=== PATIENT | female | born 1970 | race Caucasian/White ===

== ENCOUNTER 2016-12-02 15:46 | Emergency (ER) | payer OTHER ==
[2016-12-02 15:58] VITALS: BP 137/86
--- NOTE | 2016-12-02 16:29 | UC ---
Abdominal Pain Female HPI - HPI Summary HPI Summary: Pt started with nasal congestion, ST, cough, chills about 2 weeks ago. Sx lasted around 7 days and seemed to clear up completely. Developed nausea and occasional episodes of diarrhea (1-2x/day) 4 days ago; daughter had vomiting and diarrhea that lasted about 24 hours just before pt had symptoms. Stomach still feels a little queasy and she still "feels sick." Feels tired, chilled, feet are sweaty, is quick to be exhausted with exertion. Denies fever, cough, trouble breathing, facial pain, or abdominal pain. Does report increased "gurgling" in stomach with eating. - History of Current Complaint Chief Complaint: UCGeneralIllness Stated Complaint: FLU LIKE SYMPTOMS Time Seen by Provider: 12/02/16 15:57 Hx Last Menstrual Period: 11/26/16 ?: No Onset/Duration: Gradual Onset, Lasting Days Timing: Constant Severity Initially: Mild Severity Currently: Mild Location: Diffuse Radiates: No Character: Other - gurgly, nausea Aggravating Factor(s): Food Alleviating Factor(s): Nothing Associated Signs and Symptoms: Positive: Cough - resolved, Nausea, Diarrhea. Negative: Fever, Back Pain, Constipation Allergies/Adverse Reactions: Allergies Allergy/AdvReac Type Severity Reaction Status Date / Time Latex Allergy Itching Verified 01/20/16 12:29 PMH/Surg Hx/FS Hx/Imm Hx Endocrine History Of: Reports: Thyroid Disease - hypo Denies: Diabetes Cardiovascular History Of: Denies: Hypertension, Pacemaker/ICD GI/ History Of: Denies: Renal Disease - Surgical History Surgical History: Yes Surgery Procedure, Year, and Place: surgery for excessive menstrual bleeding. BUNION REMOVED FROM LEFT GREAT TOE W/PIN - Family History Known Family History: Positive: Hypertension - Social History Occupation: Employed Full-time Alcohol Use: None Substance Use Type: None Smoking Status (MU): Former Smoker When Did the Patient Quit Smoking/Using Tobacco: 2005 Review of Systems Constitutional: Negative Skin: Negative Eyes: Negative ENT: Sore Throat - resolved, Nasal Discharge - resolved Respiratory: Cough - resolved Cardiovascular: Negative Gastrointestinal: Diarrhea Genitourinary: Negative Motor: Negative Neurovascular: Negative Musculoskeletal: Negative Neurological: Negative Psychological: Negative All Other Systems Reviewed And Are Negative: Yes Physical Exam Triage Information Reviewed: Yes Appearance: Well-Appearing, No Pain Distress, Well-Nourished Vital Signs: Initial Vital Signs Temp 97.5 F 12/02/16 15:53 Pulse 73 12/02/16 15:53 Resp 16 12/02/16 15:53 BP 137/86 12/02/16 15:53 Pulse Ox 100 12/02/16 15:53 Vital Signs Reviewed: Yes Eye Exam: Normal Eyes: Positive: Conjunctiva Clear ENT Exam: Normal ENT: Positive: Normal ENT inspection, Hearing grossly normal, Pharynx normal, TMs normal, Other: - no sinus tenderness, no PND. Negative: Nasal congestion, Nasal drainage, Tonsillar swelling, Tonsillar exudate Dental Exam: Normal Dental: Negative: Percussion Tenderness @, Gross Decay/Caries @, Dental Fracture @ Neck exam: Normal Neck: Positive: Supple, Nontender, No Lymphadenopathy Respiratory Exam: Normal Respiratory: Positive: Chest non-tender, Lungs clear, Normal breath sounds, No respiratory distress, No accessory muscle use Cardiovascular Exam: Normal Cardiovascular: Positive: RRR, No Murmur Abdominal Exam: Normal Abdomen Description: Positive: Nontender, No Organomegaly, Soft. Negative: Bruit, CVA Tenderness (R), CVA Tenderness (L), Distended, Guarding, McBurney's Point Tenderness, Peritoneal Signs Bowel Sounds: Positive: Present Musculoskeletal Exam: Normal Neurological Exam: Normal Psychological Exam: Normal Skin Exam: Normal Abd Pain Female Course/Dx - Differential Dx/Diagnosis Provider Diagnoses: Acute gastroenteritis, resolving Discharge - Discharge Plan Condition: Stable Disposition: HOME Patient Education Materials: Gastroenteritis (ED) Referrals: Selina Shepherd MD [Primary Care Provider] - Additional Instructions: Though your symptoms were fairly mild, I suspect you still feel sick because you are still fighting off the intestinal virus. I fully expect you should feel back to normal by this weekend. If you develop new symptoms such as fever, abdominal pain, cough, trouble breathing, or other sudden change, please don't hesitate to return here or see your primary care provider.
== END 2016-12-02 16:31 | disposition home or self-care (01) ==
LOC: UCEAST 15:46
DX: K52.9 Noninfective gastroenteritis and colitis, unspecified (principal); Z87.891 Personal history of nicotine dependence
CPT/HCPCS: 99211; G0463

== ENCOUNTER 2016-12-23 15:56 | Emergency (ER) | payer OTHER ==
[2016-12-23 16:32] VITALS: BP 139/83
--- NOTE | 2016-12-23 17:14 | UC ---
Throat Pain/Nasal Ludin HPI - HPI Summary HPI Summary: DIAGNOSED WITH POSITIVE STREP FOUR DAYS AGO. LAST TWO DAYS HAS HAD WORSENING FEVER, SORE THROAT, COUGH. NO RASHES. - History of Current Complaint Chief Complaint: UCRespiratory Stated Complaint: SORE THROAT Time Seen by Provider: 12/23/16 16:35 Hx Obtained From: Patient Hx Last Menstrual Period: 12/05/16 Onset/Duration: Gradual Onset, Lasting Days, Still Present Severity: Moderate Cough: None Associated Signs & Symptoms: Positive: Dysphagia, Hoarseness, Fever - Epiglottits Risk Factors Epiglottis Risk Factors: Negative - Allergies/Home Medications Allergies/Adverse Reactions: Allergies Allergy/AdvReac Type Severity Reaction Status Date / Time Latex Allergy Itching Verified 12/23/16 16:32 PMH/Surg Hx/FS Hx/Imm Hx Previously Healthy: Yes Endocrine History Of: Reports: Thyroid Disease - hypo Denies: Diabetes Cardiovascular History Of: Denies: Cardiac Disorders, Hypertension, Pacemaker/ICD Respiratory History Of: Denies: COPD, Asthma GI/ History Of: Denies: Ulcer, Renal Disease - Surgical History Surgical History: Yes Surgery Procedure, Year, and Place: surgery for excessive menstrual bleeding. BUNION REMOVED FROM LEFT GREAT TOE W/PIN - Family History Known Family History: Positive: Hypertension - Social History Occupation: Employed Full-time Lives: With Family Alcohol Use: None Substance Use Type: None Smoking Status (MU): Former Smoker When Did the Patient Quit Smoking/Using Tobacco: 2005 Review of Systems Constitutional: Fever, Chills Skin: Negative Eyes: Negative ENT: Sore Throat Respiratory: Negative Cardiovascular: Negative Gastrointestinal: Negative Genitourinary: Negative Motor: Negative Neurovascular: Negative Musculoskeletal: Negative Neurological: Negative Psychological: Negative All Other Systems Reviewed And Are Negative: Yes Physical Exam Triage Information Reviewed: Yes Appearance: Well-Appearing, No Pain Distress, Well-Nourished Vital Signs: Initial Vital Signs Temp 98.2 F 12/23/16 16:29 Pulse 63 12/23/16 16:29 Resp 16 12/23/16 16:29 BP 139/83 12/23/16 16:29 Pulse Ox 100 12/23/16 16:29 Vital Signs Reviewed: Yes Eye Exam: Normal Eyes: Positive: Conjunctiva Clear ENT: Positive: Hearing grossly normal, Pharyngeal erythema, TMs normal, TM dull , Tonsillar swelling, Tonsillar exudate Dental Exam: Normal Neck exam: Normal Neck: Positive: Supple, Nontender Respiratory Exam: Normal Respiratory: Positive: Chest non-tender, Lungs clear, Normal breath sounds, No respiratory distress Cardiovascular Exam: Normal Cardiovascular: Positive: RRR, No Murmur, Pulses Normal Abdominal Exam: Normal Musculoskeletal Exam: Normal Neurological Exam: Normal Psychological Exam: Normal Psychological: Positive: Normal Response To Family Skin Exam: Normal Throat Pain/Nasal Course/Dx - Differential Dx/Diagnosis Differential Diagnosis/HQI/PQRI: Laryngitis, Pharyngitis, Tonsillitis, URI Provider Diagnoses: STREP TONSILLITIS Discharge - Discharge Plan Condition: Stable Disposition: HOME Prescriptions: Amoxicillin/Clavulanate TAB* [Augmentin TAB 875*] 875 mg PO BID #20 tab Patient Education Materials: Strep Throat (ED) Forms: *Work Release Referrals: Selina Shepherd MD [Primary Care Provider] -
== END 2016-12-23 17:10 | disposition home or self-care (01) ==
LOC: UCEAST 15:56
DX: J03.00 Acute streptococcal tonsillitis, unspecified (principal); Z87.891 Personal history of nicotine dependence
CPT/HCPCS: 87651; 99212; G0463

== ENCOUNTER 2017-07-09 02:03 | Emergency (ER) | payer OTHER ==
[2017-07-09] MEDS ORDERED: NS 0.9% 1000 ML* 1,000 ML IV ONE (02:34)
[2017-07-09 03:51] LABS: Urine Bilirubin Negative (Negative); Urine Glucose Negative (Negative); Urine Nitrite Negative (Negative)
[2017-07-09 03:54] LABS: Hematocrit 41 % (35-47); Hemoglobin 13.8 g/dl (12.0-16.0); Mean Corpuscular HGB Conc 34 g/dl (31-36); Mean Corpuscular Hemoglobin 30 pg (27-31); Mean Corpuscular Volume 88 fL (80-97); Mean Platelet Volume 8 um3 (7.4-10.4); Red Blood Count 4.66 10^6/ul (4.0-5.4); Red Cell Distribution Width 13 % (10.5-15)
[2017-07-09 04:07] LABS: ALT 18 U/L (7-52); AST 15 U/L (13-39); Albumin 4.3 g/dL (3.2-5.2); Alkaline Phosphatase 62 U/L (34-104); Amylase 24 U/L (29-103); Anion Gap 5 mmol/L (2-11); BUN/Creatinine Ratio 21.3 (8-20); Blood Urea Nitrogen 17 mg/dL (6-24); C Reactive Protein < 1.00 mg/L (< 5.00); CO2 Carbon Dioxide 24 mmol/L (22-32); Chloride 105 mmol/L (101-111); EGFR African American 98.9 (>60); EGFR Non-African American 76.9 (>60); Globulin 2.7 g/dL (2-4); Glucose 98 mg/dL (70-100); Lipase 25 U/L (11.0-82.0); Potassium 3.9 mmol/L (3.5-5.0); Sodium 134 mmol/L (133-145)
[2017-07-09 07:05] VITALS: BP 136/86
--- NOTE | 2017-07-09 07:25 | ED ---
Ayse Jean Emily, scribed for Nicolas Carballo MD on 07/09/17 at 0508 . HPI Chest Pain - HPI Summary HPI Summary: This patient is a 46 year old F BIBA to [facility] with a chief complaint of right- sided chest pain that began about 2300. Pain is behind the right breast and on the right side. She reports a band of pain on the right back spread from the CP. The CC is described as an intense tight, burning pain (gripping). The pain is intermittent and has lessened. Her stools have been dark, and it has been hard for her to defecate in the last 2 days. Symptoms aggravated by nothing. Symptoms alleviated by nothing. Patient reports nausea, lightheadedness, and dyspnea. Patient denies leg pain, palpitations, hematuria, and back pain. She took [employer], which did not improve symptoms. Patient has had heartburn previously, but that pain does not feel like current CC. Patient denies hx of cholecystectomy. Patient denies recent travel and surgeries. - History of Current Complaint Chief Complaint: EDAbdPain Time Seen by Provider: 07/09/17 03:33 Hx Obtained From: Patient Hx Last Menstrual Period: 12/05/16 Onset/Duration: Started Hours Ago, Still Present Timing: Intermittent Initial Severity: Mild Current Severity: Mild Pain Intensity: 0 Pain Scale Used: 0-10 Numeric Chest Pain Location: Diffuse - Right side Chest Pain Radiates: Yes Chest Pain Radiates To:: Back Character: Burning, Tightness Aggravating Factor(s): Nothing Alleviating Factor(s): Nothing Associated Signs and Symptoms: Positive: Other: - Positive nausea, lightheadedness, and dyspnea. Negative leg pain, palpitations, hematuria, and back pain. - Allergy/Home Medications Allergies/Adverse Reactions: Allergies Allergy/AdvReac Type Severity Reaction Status Date / Time Latex Allergy Itching Verified 07/09/17 02:16 PMH/Surg Hx/FS Hx/Imm Hx Previously Healthy: No Endocrine/Hematology History: Reports: Hx Thyroid Disease - hypo Denies: Hx Diabetes Cardiovascular History: Denies: Hx Hypertension, Hx Pacemaker/ICD Respiratory History: Denies: Hx Asthma, Hx Chronic Obstructive Pulmonary Disease (COPD) GI History: Denies: Hx Ulcer History: Denies: Hx Renal Disease Sensory History: Denies: Hx Hearing Aid Psychiatric History: Denies: Hx Panic Disorder - Cancer History Hx Chemotherapy: No Hx Radiation Therapy: Yes - I81 IODINE - Surgical History Surgery Procedure, Year, and Place: surgery for excessive menstrual bleeding. BUNION REMOVED FROM LEFT GREAT TOE W/PIN Infectious Disease History: No Infectious Disease History: Denies: Hx Hepatitis, Hx Human Immunodeficiency Virus (HIV), Traveled Outside the [place] in Last 30 Days - Family History Known Family History: Positive: Hypertension - Social History Occupation: Employed Full-time Lives: With Family Alcohol Use: None Substance Use Type: Reports: None Smoking Status (MU): Former Smoker Review of Systems Positive: Chest Pain. Negative: Palpitations Positive: Other - Dyspnea Positive: Nausea Positive: other - Dark stool. Hard to defecate.. Negative: hematuria Positive: Other - Negative leg pain and leg pain Neurological: Other - Lightheadedness All Other Systems Reviewed And Are Negative: Yes Physical Exam - Summary Physical Exam Summary: The patient is well-nourished in no acute distress and in no acute pain. The skin is warm and dry and skin color reflects adequate perfusion. HEENT: The head is normocephalic and atraumatic. The pupils are equal and reactive. The conjunctivae are clear and without drainage. Nares are patent and without drainage. Mouth reveals moist mucous membranes and the throat is without erythema and exudate. The external ears are intact. The ear canals are patent and without drainage. The tympanic membranes are intact. Neck is supple with full range of motion and non-tender. There are no carotid bruits. There is no neck vein distension. Respiratory: Chest is non-tender. Lungs are clear to auscultation and breath sounds are symmetrical and equal. Cardiovascular: Heart is regular rate and rhythm. There is no murmur or rub auscultated. There is no peripheral edema and pulses are symmetrical and equal. No reproducible anterior chest wall pain. Abdomen: The abdomen is soft and non-tender. There are normal bowel sounds heard in all four quadrants and there is no organomegaly palpated. No CVA tenderness. No Talley's sign. No RUQ pain. No right flank pain. Musculoskeletal: There is no back pain noted. Extremities are non-tender with full range of motion. There is good capillary refill. There is no peripheral edema or calf tenderness elicited. Neurological: Patient is alert and oriented to person, place and time. The patient has symmetrical motor strength in all four extremities. Cranial nerves are grossly intact. Deep tendon reflexes are symmetrical and equal in all four extremities. Psychiatric: The patient has an appropriate affect and does not exhibit any anxiety or depression. Triage Information Reviewed: Yes Vital Signs On Initial Exam: Initial Vitals Temp Pulse Resp BP Pulse Ox 98.6 F 51 18 136/82 98 07/09/17 02:15 07/09/17 02:15 07/09/17 02:15 07/09/17 02:15 07/09/17 02:15 Vital Signs Reviewed: Yes Diagnostics - Vital Signs Vital Signs Temp Pulse Resp BP Pulse Ox 07/09/17 02:16 98.6 F 51 18 136/82 98 07/09/17 02:15 98.6 F 51 18 136/82 98 - Laboratory Lab Results: Lab Results 07/09/17 07/09/17 07/09/17 Range/Units 03:24 03:24 03:24 WBC 13.0 H (3.5-10.8) 10^3/ul RBC 4.66 (4.0-5.4) 10^6/ul Hgb 13.8 (12.0-16.0) g/dl Hct 41 (35-47) % MCV 88 (80-97) fL MCH 30 (27-31) pg MCHC 34 (31-36) g/dl RDW 13 (10.5-15) % Plt Count 309 (150-450) 10^3/ul MPV 8 (7.4-10.4) um3 Neut % (Auto) 76.3 (38-83) % Lymph % (Auto) 16.3 L (25-47) % [place] % (Auto) 6.0 (1-9) % Eos % (Auto) 0.9 (0-6) % Baso % (Auto) 0.5 (0-2) % Absolute Neuts (auto) 9.9 H (1.5-7.7) 10^3/ul Absolute Lymphs (auto) 2.1 (1.0-4.8) 10^3/ul Absolute Monos (auto) 0.8 (0-0.8) 10^3/ul Absolute Eos (auto) 0.1 (0-0.6) 10^3/ul Absolute Basos (auto) 0.1 (0-0.2) 10^3/ul Absolute Nucleated RBC 0 10^3/ul Nucleated RBC % 0 D-Dimer, Quantitative (Less Than 230) ng/mL Sodium 134 (133-145) mmol/L Potassium 3.9 (3.5-5.0) mmol/L Chloride 105 (101-111) mmol/L Carbon Dioxide 24 (22-32) mmol/L Anion Gap 5 (2-11) mmol/L BUN 17 (6-24) mg/dL Creatinine 0.80 (0.51-0.95) mg/dL Est GFR ( Amer) 98.9 (>60) Est GFR (Non-Af Amer) 76.9 (>60) BUN/Creatinine Ratio 21.3 H (8-20) Glucose 98 (70-100) mg/dL Lactic Acid 0.7 (0.5-2.0) mmol/L Calcium 10.0 (8.6-10.3) mg/dL Total Bilirubin 1.40 H (0.2-1.0) mg/dL AST 15 (13-39) U/L ALT 18 (7-52) U/L Alkaline Phosphatase 62 (34-104) U/L Troponin I 0.00 (<0.04) ng/mL C-Reactive Protein < 1.00 (< 5.00) mg/L B-Natriuretic Peptide ( - 100) pg/mL Total Protein 7.0 (6.4-8.9) g/dL Albumin 4.3 (3.2-5.2) g/dL Globulin 2.7 (2-4) g/dL Albumin/Globulin Ratio 1.6 (1-3) Amylase 24 L (29-103) U/L Lipase 25 (11.0-82.0) U/L Urine Color Urine Appearance Urine pH (5-9) Ur Specific [place] (1.010-1.030) Urine Protein (Negative) Urine Ketones (Negative) Urine Blood (Negative) Urine Nitrate (Negative) Urine Bilirubin (Negative) Urine Urobilinogen (Negative) Ur Leukocyte Esterase (Negative) Urine Glucose (Negative) 07/09/17 07/09/17 07/09/17 Range/Units 03:24 03:24 03:36 WBC (3.5-10.8) 10^3/ul RBC (4.0-5.4) 10^6/ul Hgb (12.0-16.0) g/dl Hct (35-47) % MCV (80-97) fL MCH (27-31) pg MCHC (31-36) g/dl RDW (10.5-15) % Plt Count (150-450) 10^3/ul MPV (7.4-10.4) um3 Neut % (Auto) (38-83) % Lymph % (Auto) (25-47) % [place] % (Auto) (1-9) % Eos % (Auto) (0-6) % Baso % (Auto) (0-2) % Absolute Neuts (auto) (1.5-7.7) 10^3/ul Absolute Lymphs (auto) (1.0-4.8) 10^3/ul Absolute Monos (auto) (0-0.8) 10^3/ul Absolute Eos (auto) (0-0.6) 10^3/ul Absolute Basos (auto) (0-0.2) 10^3/ul Absolute Nucleated RBC 10^3/ul Nucleated RBC % D-Dimer, Quantitative < 200 (Less Than 230) ng/mL Sodium (133-145) mmol/L Potassium (3.5-5.0) mmol/L Chloride (101-111) mmol/L Carbon Dioxide (22-32) mmol/L Anion Gap (2-11) mmol/L BUN (6-24) mg/dL Creatinine (0.51-0.95) mg/dL Est GFR ( Amer) (>60) Est GFR (Non-Af Amer) (>60) BUN/Creatinine Ratio (8-20) Glucose (70-100) mg/dL Lactic Acid (0.5-2.0) mmol/L Calcium (8.6-10.3) mg/dL Total Bilirubin (0.2-1.0) mg/dL AST (13-39) U/L ALT (7-52) U/L Alkaline Phosphatase (34-104) U/L Troponin I (<0.04) ng/mL C-Reactive Protein (< 5.00) mg/L B-Natriuretic Peptide 23 ( - 100) pg/mL Total Protein (6.4-8.9) g/dL Albumin (3.2-5.2) g/dL Globulin (2-4) g/dL Albumin/Globulin Ratio (1-3) Amylase (29-103) U/L Lipase (11.0-82.0) U/L Urine Color Yellow Urine Appearance Clear Urine pH 6.0 (5-9) Ur Specific [place] 1.011 (1.010-1.030) Urine Protein Negative (Negative) Urine Ketones Negative (Negative) Urine Blood Negative (Negative) Urine Nitrate Negative (Negative) Urine Bilirubin Negative (Negative) Urine Urobilinogen Negative (Negative) Ur Leukocyte Esterase Negative (Negative) Urine Glucose Negative (Negative) Result Diagrams: 07/09/17 03:24 07/09/17 03:24 Lab Statement: Any lab studies that have been ordered have been reviewed, and results considered in the medical decision making process. - Radiology CXR Xray Interpretation: No Acute Changes - No active disease. Radiology Interpretation Completed By: ED Physician - EKG 0301 EKG Rhythm: Sinus Bradycardia - [address] Segment: Normal EKG Interpretation: Normal axis 0556 EKG Rhythm: Sinus Bradycardia - [address] Segment: Normal EKG Interpretation: Normal axis Re-Evaluation - Re-Evaluation First Eval Re-Evaluation Time: 05:15 Comment: Epigastric pain, no chest pain. Second Eval Re-Evaluation Time: 06:50 Change: Improved Comment: Discussed results and dispo with patient. Chest Pain Course/Dx - Course Course Of Treatment: This patient is a 46 year old F BIBA to [facility] with a chief complaint of right-sided chest pain that began about 2300. Pain is behind the right breast and on the right side. She reports a band of pain on the right back spread from the CP. The CC is described as an intense tight, burning pain ( gripping). The pain is intermittent and has lessened. Her stools have been dark , and it has been hard for her to defecate in the last 2 days. Symptoms aggravated by nothing. Symptoms alleviated by nothing. Patient reports nausea, lightheadedness, and dyspnea. Patient denies leg pain, palpitations, hematuria, and back pain. She took [employer], which did not improve symptoms. Patient has had heartburn previously, but that pain does not feel like current CC. Patient denies hx of cholecystectomy. Patient denies recent travel and surgeries. Physical Exam Findings. No reproducible anterior chest wall pain. No CVA tenderness. No Pearce sign. No RUQ pain. No right flank pain. Medical Decision Making. An EKG at 0301 reveals sinus bradycardia at 46 BPM, normal ST segment, and normal axis. An EKG at 0556 reveals sinus bradycardia at 44 BPM, normal ST segment, and normal axis. CXR read by ED physician is nml, no active disease. In the ED course the patient was given fluids. Patient will be discharged with and follow up from Dr. Shepherd. The patient is agreeable with this plan. - Chest Pain Differential Diagnosis/HQI/PQRI: Acute UT, ACS, GI Disease, Pulmonary Embolism, Other: - gallbladder, peptic ulcer disease - Diagnoses Provider Diagnoses: Chest pain Discharge - Discharge Plan Condition: Stable Disposition: HOME Patient Education Materials: Chest Pain (ED) Referrals: Selina Shepherd MD [Primary Care Provider] - 3 Days The documentation as recorded by the Ayse garica Emily accurately reflects the service I personally performed and the decisions made by , Nicolas Carballo MD.
--- NOTE | 2017-07-09 09:35 | RAD ---
INDICATION: Chest pain COMPARISON: Most recent comparison chest x-rays dated June 03, 2015 TECHNIQUE: PA and lateral views of the chest were obtained. FINDINGS: The heart and mediastinum are normal in size and contour. The lungs are grossly clear. There is no evidence of large pleural effusion. Visualized bones are normal for the patient's age. There is no radiographic evidence of free air beneath the diaphragm IMPRESSION: No radiographic evidence of acute cardiopulmonary disease.
== END 2017-07-09 07:04 | disposition home or self-care (01) ==
LOC: ED 02:03
DX: R07.9 Chest pain, unspecified (principal); E03.9 Hypothyroidism, unspecified; Z87.891 Personal history of nicotine dependence
CPT/HCPCS: 36415; 71020; 80053; 81003; 82150; 83605; 83690; 83880; 84484; 85025; 85379; 86140; 87040; 93005; 96360; 99285

== ENCOUNTER 2019-09-04 07:57 | Emergency (ER) | payer OTHER ==
--- NOTE | 2019-09-04 08:24 | UC ---
Dizzy HPI HPI Summary: Well yesterday, awoke with acute vertigo and nausea, vomited x 1 at 0400 this morning. This is associated with increasing neck pain and elevated blood pressure. She is off balance, but has no sided weakness, paresthesias, dysarthria or diplopia. - History Of Current Complaint Chief Complaint: UCDizziness Stated Complaint: DIZZINESS, NAUSEA AND NECK PAIN Time Seen by Provider: 09/04/19 08:16 Hx Obtained From: Patient Hx Last Menstrual Period: 12/05/16 ?: No Onset/Duration: Sudden Onset, Lasting Hours - 3 Severity Initially: Moderate Severity Currently: Moderate Pain Intensity: 6 Character: Room Spinning, Dizzy Aggravating Factor(s): Exertion, Headache, Position Change Alleviating Factor(s): Rest Associated Signs And Symptoms: Positive: Nausea, Vomiting, Unsteady Gait. Negative: Diaphoresis, Tinnitus, Palpitations, Visual Changes - no diplopia or blurring - Risk Factors Cardiac Risk Factors: Hypertension - no past hx of hypertension. CVA Risk Factor: Hypertension - Allergies/Home Medications Allergies/Adverse Reactions: Allergies Allergy/AdvReac Type Severity Reaction Status Date / Time latex Allergy Itching Verified 09/04/19 08:05 PMH/Surg Hx/FS Hx/Imm Hx Previously Healthy: Yes Endocrine History: Hypothyroidism Neurological History: Migraine - Surgical History Surgical History: Yes Surgery Procedure, Year, and Place: surgery for excessive menstrual bleeding. BUNION REMOVED FROM LEFT GREAT TOE W/PIN - Family History Known Family History: Positive: Hypertension - Social History Occupation: Employed Full-time Alcohol Use: None Substance Use Type: None Smoking Status (MU): Former Smoker When Did the Patient Quit Smoking/Using Tobacco: 2005 Review of Systems All Other Systems Reviewed And Are Negative: Yes Constitutional: Positive: Negative Skin: Positive: Negative Eyes: Negative: Blurred Vision, Diplopia, Photophobia ENT: Positive: Negative. Negative: Ear Ache Respiratory: Positive: Negative Cardiovascular: Positive: Negative Gastrointestinal: Positive: Negative Genitourinary: Positive: Negative Motor: Negative: Decreased ROM, Weakness Neurovascular: Positive: Negative Musculoskeletal: Negative: Arthralgia Neurological: Positive: Headache - has occipital headache and neck stiffness. Gets about a headache per week which responds to zomig. Psychological: Positive: Anxious Is Patient Immunocompromised?: No Physical Exam Triage Information Reviewed: Yes Appearance: Well-Appearing, Pain Distress - mild Vital Signs: Initial Vital Signs Temp 97.3 F 09/04/19 08:01 Pulse 54 09/04/19 08:01 Resp 16 09/04/19 08:01 BP 175/100 09/04/19 08:01 Pulse Ox 100 09/04/19 08:01 Eye Exam: Other - KEEGAN with normal eye movements with lateral nystagmus with gaze to right. Eyes: Positive: Conjunctiva Clear ENT: Positive: Pharynx normal, TMs normal Neck: Positive: Supple, Nontender, No Lymphadenopathy Respiratory: Positive: Lungs clear, Normal breath sounds Cardiovascular: Positive: RRR, No Murmur Musculoskeletal: Positive: Strength Intact - No pronator drift. Neurological Exam: Other - CNII-XII normal. No pronator drift. Negative Romberg 's. Gait is wide based and ataxic. Neurological: Positive: Alert, Muscle Tone Normal, Other: - Roderick Hallpike performed, has decreased vertigo post maneuver with head turning to the left, decreased nystagus. Psychological Exam: Normal Skin Exam: Normal Re-Evaluation - Re-Evaluation First Eval Change: Improved - blood pressure decreased to 144/100, less headache, post Roderick- Hallpike has decreased ataxia. Dizzy Course/Dx - Course Course Of Treatment: meclizine, rest, follow up blood pressure readings. - Differential Dx/Diagnosis Provider Diagnosis: Benign positional vertigo Discharge ED - Sign-Out/Discharge Documenting (check all that apply): Patient Departure All imaging exams completed and their final reports reviewed: Yes - Discharge Plan Condition: Stable Disposition: HOME Prescriptions: Meclizine TAB* [Antivert 12.5 TAB*] 25 mg PO TID PRN #20 tab PRN Reason: Vertigo Patient Education Materials: Benign Paroxysmal Positional Vertigo (ED) Referrals: Selina Shepherd MD [Primary Care Provider] - Additional Instructions: Rest at home today, and take meclizine 25mg up to three times daily, ensuring a dose before bed tonight. Take your blood pressure ONCE more today, and keep a record. Arrange a follow up visit with Dr. Shepherd to follow up on vertigo and to re-evaluate your blood pressure. If you have increasing headache and blood pressure readings over 190/100, please go to the emergency room for further evaluation. - Billing Disposition and Condition Condition: STABLE Disposition: Home
[2019-09-04] MEDS ORDERED: Ondansetron ODT TAB* 4 MG PO ONE (08:29)
[2019-09-04 09:13] VITALS: BP 144/100
== END 2019-09-04 09:33 | disposition home or self-care (01) ==
LOC: UCEAST 07:57
DX: H81.10 Benign paroxysmal vertigo, unspecified ear (principal); R03.0 Elevated blood-pressure reading, without diagnosis of hypertension; M54.2 Cervicalgia; R51 Headache; Z91.040 Latex allergy status; Z87.891 Personal history of nicotine dependence
CPT/HCPCS: 70450; 99212; A9270-GY; G0463